=== PATIENT | male | born 1960 | race Caucasian/White ===

== ENCOUNTER 2024-12-05 11:51 | Emergency (ER) | payer MEDICARE, OTHER, SELFPAY ==
[2024-12-05 11:59] VITALS: BP 121/88; PULSE 84; TEMP 36.7; O2SAT 96; BMI 28.2
--- NOTE | 2024-12-05 12:23 | ED_ITS ---
HPI HPI - General Adult General Chief complaint: Weakness Stated complaint: WEAKNESS Time Seen by Provider: 12/05/24 12:17 Source: patient Mode of arrival: walk-in History of Present Illness HPI narrative: The patient is a 64-year-old male who presents to the emergency department today for evaluation concerns for shortness of breath on exertion. He endorses over the last 4 days he has noticed his symptoms to be progressively worse. He states he went to ride his bike today and got about 1.5 miles and felt winded and lightheaded. Has any syncopal episodes. No chest pain. He denies any significant cardiovascular history including AR or CVA. He does endorse a history of hypertension and hyperlipidemia which she is on medical therapy for. No history of diabetes of. No orthopnea or peripheral edema. He denies any additional associated symptoms of diaphoresis or nausea/vomiting. No fever/chills or cough/cold symptoms. Related Data Home Medications ?Medication ?Instructions ?Recorded ?Confirmed atorvastatin 40 mg tablet mg 12/05/24 lisinopril 20 tab 12/05/24 mg-hydrochlorothiazide 25 mg tablet Allergies Allergy/AdvReac Type Severity Reaction Status Date / Time No Known Drug Allergies Allergy Verified 12/05/24 11:58 Review of Systems ROS Status of ROS 10 or more systems reviewed and unremark able except as noted in history and below PFSH PFSH Social History Little interest or pleasure in doing things: not at all Feeling down, depressed, or hopeless: not at all Exam Narrative Exam Narrative: Constituational: Awake/ alert, no apparent distress, well hydrated HENMT: normocephalic, external ears normal, moist oral mucous membranes and oropharynx normal Eyes: EOMI and conjunctivae normal Neck: ROM intact Chest: inspection of chest normal Respiratory: Normal respiratory effort, clear to auscultation bilaterally Cardio: regular rate and regular rhythm GI: soft to palpation and non-tender Back: nontender MSK: ROM intact, +NVI Skin: no rashes or petechiae Neuro: no focal deficits Psych: mental status grossly normal Constitutional Vital Signs, click to edit/add: Last Vital Signs Temp 98.1 F 12/05/24 11:59 Pulse 84 12/05/24 11:59 Resp 16 12/05/24 11:59 BP 121/88 12/05/24 11:59 Pulse Ox 96 12/05/24 11:59 O2 Del Method Room Air 12/05/24 11:59 Course Vital Signs Vital signs: Vital Signs Temperature 98.1 F 12/05/24 11:59 Pulse Rate 84 12/05/24 11:59 Respiratory Rate 16 12/05/24 11:59 Blood Pressure 121/88 12/05/24 11:59 Pulse Oximetry 96 12/05/24 11:59 Oxygen Delivery Method Room Air 12/05/24 11:59 Temperature 98.1 F 12/05/24 11:59 Pulse Rate 84 12/05/24 11:59 Respiratory Rate 16 12/05/24 11:59 Blood Pressure 121/88 12/05/24 11:59 Pulse Oximetry 96 12/05/24 11:59 Oxygen Delivery Method Room Air 12/05/24 11:59 Medical Decision Making MDM Narrative Medical decision making narrative: The patient is a appearing 64-year-old male who presented to the emergency department for concerns for exertional dyspnea. Initial examination vital signs overall stable. He does not appear to be exhibiting any ischemic symptoms and does appear euvolemic on exam. No clinical evidence concerning for infectious processes such as URI. EKG without acute changes and troponin negative x 1. Normal BNP. Labs stable and showed no significant leukocytosis, anemia, thrombocytopenia. Electrolytes including renal and hepatic function stable. Chest x-ray without critical findings. Patient was reevaluated multiple times while in the emergency department and had no significant changes in condition. He is ambulatory in the hallways when going to the bathroom and is not in any distress. Clinical impression exertional dyspnea, possible exercise intolerance vs cardio-pulmonary etiology. Discussed these findings with the patient including recommendations for supportive care. Advised on close follow-up with patient's primary care provider for reevaluation and further evaluation of these concerns. Discussed signs and symptoms of any worsening condition and when to consider reevaluation. Patient verbalized an understanding of this and is agreeable with the plan to be discharged home. Medical Records Medical records reviewed: Yes I reviewed the patient's medical records Lab Data Lab results reviewed: Yes I reviewed the patient's lab results Labs: Lab Results 12/05/24 Range/Units 12:25 WBC 6.7 (4.0-11.0) 10^3/uL RBC 4.96 (4.70-6.10) 10^6/uL Hgb 15.9 (14.0-18.0) g/dL Hct 43.9 (42.0-54.0) % MCV 88.5 (80.0-94.0) fL MCH 32.1 (25.9-34.0) pg MCHC 36.2 H (29.9-35.2) g/dL RDW 11.7 (11.0-15.0) % Plt Count 254 (150-450) 10^3/uL MPV 9.3 L (9.5-13.5) fL Neut % (Auto) 72.9 (43.0-75.0) % Lymph % (Auto) 17.0 L (20.5-60.0) % [place] % (Auto) 8.1 (1.7-12.0) % Eos % (Auto) 1.0 (0.9-7.0) % Baso % (Auto) 0.7 (0.2-2.0) % Neut # (Auto) 4.9 (1.4-6.5) 10^3/uL Lymph # (Auto) 1.1 L (1.2-3.8) 10^3/uL [place] # (Auto) 0.5 (0.3-0.8) 10^3/uL Eos # (Auto) 0.1 (0.0-0.7) 10^3/uL Baso # (Auto) 0.1 (0.0-0.1) 10^3/uL Abs Immat Gran (auto) 0.02 (0.00-0.03) 10^3/uL Imm/Tot Granulo (auto) 0.3 (0.0-0.5) % D-Dimer 0.29 (<=0.59) mg/L FEU Sodium 132 L (136-145) mmol/L Potassium 3.9 (3.5-5.1) mmol/L Chloride 96 L (98-107) mmol/L Carbon Dioxide 25.9 (21.0-32.0) mmol/L Anion Gap 14.0 BUN 10.0 (7.0-18.0) mg/dL Creatinine 0.86 (0.70-1.30) mg/dL Est GFR ( Amer) >60 (>=60 mL/min/1.73m^2) Est GFR (Non-Af Amer) >60 (>=60 mL/min/1.73m^2) BUN/Creatinine Ratio 11.6 Glucose 109 H (74-106) mg/dL Calcium 9.8 (8.5-10.1) mg/dL Total Bilirubin 0.5 (0.2-1.0) mg/dL AST 29 (15-37) U/L ALT 45 (16-63) U/L Alkaline Phosphatase 95 (46-116) U/L Troponin I High Sens 4.9 (4.0-76.1) pg/mL NT-Pro-B Natriuret Pep 61.0 (<=900.0) pg/mL Total Protein 8.0 (6.4-8.2) g/dL Albumin 4.0 (3.4-5.0) g/dL Globulin 4.0 g/dL Albumin/Globulin Ratio 1.0 ECG Data Attestation: ?I have reviewed the pertinent ECG results. (56684, shows SR with HR 73, no acute/ischemic changes) Discharge Plan Discharge Chief Complaint: Weakness Clinical Impression: Exertional dyspnea Patient Disposition: Home, Self-Care Prescriptions / Home Meds: No Action atorvastatin 40 mg tablet lisinopril-hydrochlorothiazide 20-25 mg tablet Print Language: Norwegian Instructions: Shortness of Breath (ED) Additional Instructions: Please follow-up with your primary care provider for continued and reevaluation of your shortness of breath with exertional activity. Return to the ER with any new or worsening symptoms/concerns. Referrals: KATIANA SANTORO [Primary Care Provider, Family Practice] - 1 week
[2024-12-05 12:34] LABS: Basophils Absolute Auto 0.1 10^3/uL (0.0-0.1); Basophils Percent Auto 0.7 % (0.2-2.0); Eosinophils Absolute Auto 0.1 10^3/uL (0.0-0.7); Hematocrit 43.9 % (42.0-54.0); Hemoglobin 15.9 g/dL (14.0-18.0); Immature Granulocytes Abs Auto 0.02 10^3/uL (0.00-0.03); Immature Granulocytes Pct Auto 0.3 % (0.0-0.5); Lymphocytes Absolute Auto 1.1 10^3/uL (1.2-3.8); Mean Corpuscular HGB Conc 36.2 g/dL (29.9-35.2); Mean Corpuscular Hemoglobin 32.1 pg (25.9-34.0); Mean Corpuscular Volume 88.5 fL (80.0-94.0); Mean Platelet Volume 9.3 fL (9.5-13.5); Monocytes Absolute Auto 0.5 10^3/uL (0.3-0.8); Monocytes Percent Auto 8.1 % (1.7-12.0); Neutrophils Absolute Auto 4.9 10^3/uL (1.4-6.5); Neutrophils Percent Auto 72.9 % (43.0-75.0); Platelet Count 254 10^3/uL (150-450); Red Blood Count 4.96 10^6/uL (4.70-6.10); Red Cell Distribution Width 11.7 % (11.0-15.0); White Blood Count 6.7 10^3/uL (4.0-11.0)
[2024-12-05 12:47] LABS: D Dimer 0.29 mg/L FEU (<=0.59)
[2024-12-05 12:53] LABS: Alanine Aminotransferase 45 U/L (16-63); Alkaline Phosphatase 95 U/L (46-116); Aspartate Amino Transferase 29 U/L (15-37); BUN Creatinine Ratio 11.6; Bilirubin Total 0.5 mg/dL (0.2-1.0); Calcium 9.8 mg/dL (8.5-10.1); Carbon Dioxide 25.9 mmol/L (21.0-32.0); Estimated GFR (African America >60 (>=60 mL/min/1.73m^2); Estimated GFR (Non-African Ame >60 (>=60 mL/min/1.73m^2); Glucose 109 mg/dL (74-106); Potassium 3.9 mmol/L (3.5-5.1)
[2024-12-05 12:58] LABS: Troponin I High Sensitivity 4.9 pg/mL (4.0-76.1)
[2024-12-05 13:01] LABS: Chloride 96 mmol/L (98-107); Sodium 132 mmol/L (136-145)
--- NOTE | 2024-12-05 14:51 | ECG_ITS ---
[facility] Test Date: 2024-12-05 Pat Name: REHAN FALL Department: Room: - Gender: Male [employer]: : [id number] Requested By: [id number] Order Number: [id number] Reading MD: LUL TELLEZ M.D. Measurements Intervals [place] Rate: 73 P: 40 [place]: 206 QRS: -78 QRSD: 136 T: 72 QT: 396 QTc: 422 Interpretive Statements 1100 Sinus rhythm 2330 Nonspecific intraventricular conduction block 3234 Anteroseptal myocardial infarction, age undetermined 9150 abnormal ECG No previous ECG available for comparison Electronically Signed On 12-05-2024 19:45:01 EDT by LUL TELLEZ M.D.
== END 2024-12-05 14:43 | disposition home or self-care (01) ==
PROVIDERS: Nurse Practitioner; Emergency Provider Emergency Medicine; PCP Family Medicine
DX: R06.09 Other forms of dyspnea (principal); I10 Essential (primary) hypertension; E78.5 Hyperlipidemia, unspecified
CPT/HCPCS: 36415; 71046; 80053; 83880; 84484; 85025; 85378; 93005; 99285